=== PATIENT | female | born 1945 | race Caucasian/White ===

== ENCOUNTER → 2017-02-06 | Outpatient (CLI) | payer MEDICARE ==
[~2017-02-06] MED LIST: AMLODIPINE-VAL1 EAC3 PO; ATEN50 PO; BISO5 PO; CYCL10 PO; FENO145 PO; GLIM2 PO; HYDCHL25 PO; HYDR1TAB94 PO; IBUP600 PO; LEVSOD50 PO; LOSA50 PO; METF500 PO; OMEG1CAP30 PO; POTA10T PO; POTCHL10ER PO; Simvastatin20 MG PO; VALS80 PO; [UNRECOGNIZED DRUG - OTHER]
[2017-02-09 11:29] LABS: HPV Genotype 16 Not Detected (NOTDET); HPV Genotype 18 Not Detected (NOTDET)
[2017-02-12 10:10] LABS: HPV High Risk Other Detected (NOTDET)
== END | disposition home or self-care (01) ==
LOC: LAB 09:29
PROVIDERS: Obstetrics & Gynecology
DX: Z01.419 Encounter for gynecological examination (general) (routine) without abnormal findings (principal)
CPT/HCPCS: 87624; G0123

== ENCOUNTER → 2017-04-06 | Outpatient (CLI) | payer MEDICARE | END | disposition home or self-care (01) | LOC: LAB SHORT 12:47 → PLD 12:47 | DX: N72 Inflammatory disease of cervix uteri (principal); R87.611 Atypical squamous cells cannot exclude high grade squamous intraepithelial lesion on cytologic smear of cervix (ASC-H); Z91.89 Other specified personal risk factors, not elsewhere classified | CPT/HCPCS: 88305 ==

== ENCOUNTER → 2017-04-20 | Outpatient (CLI) | payer MEDICARE | END | disposition home or self-care (01) | LOC: LAB SHORT 10:26 → PLD 10:26 | DX: D22.5 Melanocytic nevi of trunk (principal); D23.39 Other benign neoplasm of skin of other parts of face | CPT/HCPCS: 88305 ==

== ENCOUNTER 2017-05-09 19:06 | Emergency (ER) | payer MEDICARE ==
[~2017-05-09] VITALS: Ht 167.6 cm; Wt 72.6 kg
[~2017-05-09 19:06] MED LIST changes: -FENO145 PO; -GLIM2 PO; -LOSA50 PO; -METF500 PO; -POTCHL10ER PO
[2017-05-09 19:53] LABS: BASOPHILS ABSOLUTE AUTO 0.08 K/mm3 (0.00-0.23); BASOPHILS PERCENT AUTO 1 % (0-2); EOSINOPHILS ABSOLUTE AUTO 0.32 K/mm3 (0.00-0.68); EOSINOPHILS PERCENT AUTO 3 % (0-6); Hematocrit 40.9 % (33.0-51.0); Hemoglobin 14.4 g/dL (11.5-16.0); IMMATURE GRAN ABSOLUTE AUTO 0.04 K/mm3 (0.00-0.10); IMMATURE GRAN PERCENT AUTO 0 % (0-1); LYMPHOCYTES ABSOLUTE AUTO 2.32 K/mm3 (0.84-5.20); LYMPHOCYTES PERCENT AUTO 22 % (21-46); MONOCYTES ABSOLUTE AUTO 0.83 K/mm3 (0.16-1.47); MONOCYTES PERCENT AUTO 8 % (4-13); Mean Corpuscular HGB 29.1 pg (26.0-34.0); Mean Corpuscular HGB Conc 35.2 g/dL (31.5-36.5); Mean Corpuscular Volume 83 fL (80-100); Mean Platelet Volume 9.7 fL (9.1-12.4); NEUTROPHILS ABSOLUTE AUTO 6.96 K/mm3 (1.96-9.15); NEUTROPHILS PERCENT AUTO 66 % (41-73); Platelet Count 240 K/mm3 (150-400); RDW Coefficient Variation 12.2 % (11.7-14.2); RDW Standard Deviation 36.9 fL (35.1-46.3); Red Blood Cell Count 4.94 M/mm3 (3.80-5.20); White Blood Cell Count 10.55 K/mm3 (4.00-11.30)
[2017-05-09 20:06] LABS: Anion Gap 14 mmol/L (6-16); Blood Urea Nitrogen 21 mg/dL (8-24); CO2, Blood 19 mmol/L (21-32); Calcium, Blood 9.7 mg/dL (8.5-10.1); Chloride, Blood 102 mmol/L (98-108); Creatinine, Blood 0.78 mg/dL (0.40-1.00); Glomerular Filtration Rate >60 (60-); Glucose, Blood 119 mg/dL (70-99); Sodium, Blood 135 mmol/L (136-145)
[2017-05-09] MEDS ORDERED: FENO145 PO (21:26)
[2017-05-09] MEDS ORDERED: HYDCHL25 PO (21:27)
[2017-05-09] MEDS ORDERED: LOSA50 PO (21:27)
[2017-05-09] MEDS ORDERED: METF500 PO (21:27)
[2017-05-09] MEDS ORDERED: GLIM2 PO (21:27)
[2017-05-09] MEDS ORDERED: LEVSOD50 PO (21:27)
[2017-05-09] MEDS ORDERED: POTCHL10ER PO (21:28)
== END 2017-05-09 20:50 | disposition short-term general hospital (02) ==
LOC: ER 19:06
PROVIDERS: Emergency Medicine
DX: S34.3XXA Injury of cauda equina, initial encounter (principal); G83.4 Cauda equina syndrome; Z88.8 Allergy status to other drugs, medicaments and biological substances; Z79.899 Other long term (current) drug therapy; Z79.84 Long term (current) use of oral hypoglycemic drugs
CPT/HCPCS: 36415; 51798; 80048; 85025; 96361; 96374; 99285; J1170; J7030